=== PATIENT | female | born 1995 | race Caucasian/White ===

== ENCOUNTER 2017-07-24 10:35 | Emergency (ER) | payer OTHER ==
[~2017-07-24 10:35] MED LIST: ERYTHROMYCIN O3.5 GM OS; PRENATAL1 TA1; TESSALON PERLE100 M1 PO
[2017-07-24 11:29] LABS: INFLUENZA A NEG (NEG); INFLUENZA B NEG (NEG)
== END 2017-07-24 11:54 | disposition home or self-care (01) ==
LOC: SED 10:35
PROVIDERS: Physician Assistant
DX: B34.9 Viral infection, unspecified (principal)
CPT/HCPCS: 87651; 87804; 99283